=== PATIENT | male | born 1970 | race Caucasian/White ===

== ENCOUNTER 2018-03-14 02:43 | Emergency (ER) | payer OTHER ==
[~2018-03-14] VITALS: Ht 177.8 cm; Wt 127.0 kg
[~2018-03-14 02:43] MED LIST: AMLODIPINE BESYL5 MG PO; BENAZEPRIL HCL20 MG PO; NEXIUM40 MG
[2018-03-14 03:49] LABS: ABSOLUTE BASOPHILS 0.1 thou/uL (0.0-0.2); ABSOLUTE EOSINOPHILS 0.1 thou/uL (0.0-0.7); ABSOLUTE LYMPHOCYTES 1.4 thou/uL (0.8-5.3); ABSOLUTE MONOCYTES 0.5 thou/uL (0.0-1.2); ABSOLUTE NEUTROPHILS 6.2 thou/uL (1.6-8.1); EOSINOPHILS 1.2 %; HEMATOCRIT 42.9 % (42.0-52.0); HEMOGLOBIN 14.6 gm/dL (14.0-18.0); MCH 28.7 pg (26.0-34.0); MCV 84.4 fL (80.0-100.0); MONOCYTES 6.3 %; MPV 7.8 fl. (7.2-11.1); NUCLEATED RBCS 0 /100WBC; PLATELET COUNT* 318 thou/uL (150-400); POLYS 74.5 %; RBC 5.08 mil/uL (4.50-6.00); RDW-CV 13.3 % (10.5-14.5); WBC 8.3 thou/uL (4.0-11.0)
[2018-03-14 03:54] LABS: ANION GAP 5 mmol/L (7-16); BUN 13 mg/dL (7-18); CALCIUM 8.5 mg/dL (8.5-10.1); CHLORIDE 103 mmol/L (98-107); CO2 31 mmol/L (21-32); GLUCOSE 176 mg/dL (70-99); POTASSIUM 4.1 mmol/L (3.5-5.1); SODIUM 139 mmol/L (136-145)
[2018-03-14 03:55] LABS: INR 0.9; PROTIME 9.7 Seconds (9.20-11.50)
[2018-03-14 04:05] LABS: ALBUMIN 3.5 g/dL (3.4-5.0); ALKALINE PHOSPHATASE 104 U/L (46-116); LIPASE 143 U/L (73-393); NT-PRO BRAIN NAT PEPTIDE 27 pg/mL (<300); SGOT 27 U/L (15-37); SGPT 68 U/L (30-65); TOTAL BILIRUBIN 0.3 mg/dL (<0.1-1.0); TOTAL PROTEIN 6.9 g/dL (6.4-8.2); TROPONIN-I LEVEL <0.06 ng/mL (<0.06)
[2018-03-14] MEDS ORDERED: MUCINEX DM ER1 EACH PO (04:42)
[2018-03-14] MEDS ORDERED: AMOXICILLIN875 MG PO (04:42)
[2018-03-14 04:57] VITALS: BP 176/95
--- NOTE | 2018-03-14 16:25 | EKG ---
[place] [address] ELECTROCARDIOGRAM REPORT Name: SHANAE SHARP Room: [facility]#: [id number] Admission: 03/14/18 Attend Phys: Discharge: 03/14/18 Date of : 72 Report #: [id number] THIS REPORT FOR: //name// [facility] ED Test Date: 2018-03-14 Test Time: 03:50:32 Pat Name: SHANAE SHARP Department: Room: Gender: M [employer] Analyst: KYLE : 1970 Requested By: Sandhya Stokes Order Number: [id number] MD: Cleveland Chung Measurements Intervals [place] Rate: 82 P: 3 [place]: 138 QRS: -28 QRSD: 115 T: 36 QT: 392 QTc: 458 Interpretive Statements Sinus rhythm Nonspecific intraventricular conduction delay No previous ECG available for comparison Electronically Signed On 03-14-2018 16:24:57 TIMBER MANAGEMENT TECHNICIAN by Cleveland Chung [email or web address] <ELECTRONICALLY SIGNED> By: Cleveland Chung MD, [facility] 03/14/18 1624 0350 0350 Cleveland Chung MD, FACC /EPI
== END 2018-03-14 04:59 | disposition home or self-care (01) ==
LOC: M.ERS 02:43
PROVIDERS: Personal Emergency Response Attendant
DX: J06.9 Acute upper respiratory infection, unspecified (principal); I10 Essential (primary) hypertension; G47.30 Sleep apnea, unspecified

== ENCOUNTER → 2019-05-11 | Outpatient (CLI) | payer OTHER ==
[~2019-05-11] MED LIST changes: +AMOXICILLIN875 MG PO; +MUCINEX DM ER1 EACH PO
== END ==
LOC: M.LAB 01:55
DX: E87.6 Hypokalemia (principal)

== ENCOUNTER 2019-05-23 15:40 | Emergency (ER) | payer OTHER ==
[~2019-05-23] VITALS: Ht 177.8 cm; Wt 127.0 kg
[2019-05-23 16:03] LABS: URINE BLOOD 3+ (Negative); URINE COLOR YELLOW; URINE GLUCOSE-RANDOM NEGATIVE (Negative); URINE KETONES NEGATIVE (Negative); URINE LEUKOCYTES-REFLEX NEGATIVE (Negative); URINE NITRITE-REFLEX NEGATIVE (Negative); URINE PROTEIN NEGATIVE (Negative)
[2019-05-23 16:05] LABS: ICTOTEST (BILI CONFIRMATORY) Negative (Negative); URINE BILIRUBIN 1+ (Negative); URINE CLARITY HAZY
[2019-05-23 16:16] LABS: CASTS None Seen /LPF (None Seen); MUCUS 0-3 Light strn/LPF (None Seen); SQUAMOUS 4-10 Moderate /LPF (0-3)
[2019-05-23 16:17] LABS: BACTERIA-REFLEX 1-9 Few /HPF (None Seen); CRYSTALS None Seen /LPF (None Seen); URINE WBC-REFLEX None Seen /HPF (0-5)
[2019-05-23 16:27] LABS: ABSOLUTE BASOPHILS 0.1 thou/uL (0.0-0.2); ABSOLUTE EOSINOPHILS 0.1 thou/uL (0.0-0.7); ABSOLUTE LYMPHOCYTES 1.3 thou/uL (0.8-5.3); ABSOLUTE MONOCYTES 1.1 thou/uL (0.0-1.2); ABSOLUTE NEUTROPHILS 5.7 thou/uL (1.6-8.1); BASOPHILS 0.8 %; EOSINOPHILS 1.3 %; HEMATOCRIT 41.5 % (42.0-52.0); HEMOGLOBIN 14.5 gm/dL (14.0-18.0); LYMPHOCYTES 15.6 %; MCH 29.1 pg (26.0-34.0); MCV 82.9 fL (80.0-100.0); MONOCYTES 13.5 %; MPV 7.6 fl. (7.2-11.1); NUCLEATED RBCS 0 /100WBC; PLATELET COUNT* 365 thou/uL (150-400); POLYS 68.8 %; RDW-CV 13.2 % (10.5-14.5); WBC 8.3 thou/uL (4.0-11.0)
[2019-05-23 16:38] LABS: APTT 27.5 Seconds (25.0-31.3); PROTIME 10.2 Seconds (9.20-11.50)
[2019-05-23 16:39] LABS: CALCIUM 8.4 mg/dL (8.5-10.1); POTASSIUM 3.3 mmol/L (3.5-5.1)
[2019-05-23 16:43] LABS: ALBUMIN 3.6 g/dL (3.4-5.0); TOTAL BILIRUBIN 0.7 mg/dL (<0.1-1.0); TOTAL PROTEIN 7.4 g/dL (6.4-8.2)
[2019-05-23] MEDS ORDERED: ONDANSETRON ODT4 MG PO ×2 (17:31→18:07)
[2019-05-23] MEDS ORDERED: NORCO 5-325 TA1 EAC1 PO (17:31)
[2019-05-23] MEDS ORDERED: FLOMAX0.4 MG PO (17:31)
[2019-05-23] MEDS ORDERED: CIPRO500 MG PO (18:01)
[2019-05-23] MEDS ORDERED: FLAGYL500 M1 PO (18:01)
[2019-05-23 18:48] VITALS: BP 163/82
--- NOTE | 2019-05-24 08:54 | EKG ---
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: [facility] : 1970 Requested By: Eloina Johnson Order Number: [id number] MD: Mikal Wyatt Measurements Intervals [place] Rate: 75 P: -1 [place]: 134 QRS: -45 QRSD: 117 T: 20 QT: 400 QTc: 447 Interpretive Statements Sinus rhythm incomplete RBBB LAD, consider left anterior fascicular block Compared to ECG 03/14/2018 03:50:32 no change Electronically Signed On 05-24-2019 8:53:22 CDT by Mikal Wyatt [email or web address] <ELECTRONICALLY SIGNED> By: Mikal Wyatt MD, [facility] 05/24/19 0853 1550 1550 Mikal Wyatt MD, [facility] /EPI
== END 2019-05-23 18:49 | disposition home or self-care (01) ==
LOC: M.ERS 15:40
PROVIDERS: Physician Assistant
DX: R10.13 Epigastric pain (principal); R10.12 Left upper quadrant pain; R11.2 Nausea with vomiting, unspecified; I10 Essential (primary) hypertension; G47.30 Sleep apnea, unspecified